=== PATIENT | female | born 1955 | race Caucasian/White ===

== ENCOUNTER 2017-10-23 05:19 | Emergency (ER) | payer SELFPAY ==
[~2017-10-23] VITALS: Ht 167.6 cm; Wt 114.0 kg
[~2017-10-23 05:19] MED LIST: AMOX-291 PO; DULO60CA7 PO; HYDR-882 PO; LEVE500T53 PO; LORA0.5T PO; NICO-487 TD; OLAN10TA3 PO; OMEP-110 PO; OXCA600T3 PO; OXYC-302 PO; PRAZ1CAP2 PO; SUCR1TAB PO; TRAZ100T15 PO
[2017-10-23] MEDS ORDERED: OXYcodone/APAP 5/325MG TABLET PO ONE (06:00)
[2017-10-23] MEDS ORDERED: OXYcodone/APAP 5/325MG TABLET ONE (06:19)
[2017-10-23] MEDS ORDERED: MORPHINE SULFATE 4 MG/ML, 1ML IVPush ONE (08:00)
[2017-10-23] MEDS ORDERED: MORPHINE SULFATE 4 MG/ML, 1ML ONE (08:05)
[2017-10-23 08:08] LABS: BASOPHILS # (AUTO) 0.02 x10^3/uL (0-0.1); BASOPHILS % (AUTO) 0 % (0-1); EOSINOPHILS # (AUTO) 0.15 x10^3/uL (0-0.4); EOSINOPHILS % (AUTO) 2 % (1-7); LYMPHOCYTES # (AUTO) 1.03 x10^3/uL (1-3.4); LYMPHOCYTES % (AUTO) 14 % (22-44); MD NO; MEAN CORPUSCULAR HEMOGLOBIN 28.7 pg (27.0-34.8); MEAN CORPUSCULAR HGB CONC 32.4 g/dL (32.4-35.8); MEAN CORPUSCULAR VOLUME 88.4 fL (80-100); MEAN PLATELET VOLUME 7.1 fL (7.4-10.4); MONOCYTES # (AUTO) 0.43 x10^3/uL (0.2-0.8); MONOCYTES % (AUTO) 6 % (2-9); NEUTROPHILS # (AUTO) 5.87 x10^3/uL (1.8-6.8); NEUTROPHILS % (AUTO) 78 % (42-75); PLATELET COUNT 254 x10^3/uL (130-400); RED BLOOD COUNT 3.36 x10^6/uL (3.82-5.3); RED CELL DISTRIBUTION WIDTH 16.1 % (9.6-15.2)
[2017-10-23 08:20] LABS: ALBUMIN 3.6 g/dL (3.4-5.0); ANION GAP 7 mmol/L (5-15); CALCIUM 8.9 mg/dL (8.5-10.1); CHLORIDE 100 mmol/L (98-107); CREATININE 1.99 mg/dL (0.55-1.02)
[2017-10-23 08:23] LABS: TROPONIN I < 0.015 ng/mL (0.000-0.045)
[2017-10-23] MEDS ORDERED: LORazepam 2 MG/ML, 1ML ONE (10:09)
[2017-10-23] MEDS ORDERED: LORazepam 2 MG/ML, 1ML IVPush ONE (10:30)
[2017-10-23 12:39] VITALS: BP 136/78
== END 2017-10-23 13:27 | disposition home or self-care (01) ==
LOC: ED 07:02
DX: I82.491 Acute embolism and thrombosis of other specified deep vein of right lower extremity (principal); W10.1XXA Fall (on)(from) sidewalk curb, initial encounter; Y93.89 Activity, other specified; Y99.8 Other external cause status; Y92.488 Other paved roadways as the place of occurrence of the external cause
CPT/HCPCS: 36415; 71045; 73552; 78582; 80048; 82040; 83880; 84484; 85025; 93971; 96374; 96375; 99285; A9540; A9558; C9898; J2060